=== PATIENT | male | born 1955 | race Hispanic/Latino ===

== ENCOUNTER 2021-03-22 11:07 | Inpatient (IN) | payer OTHER ==
[~2021-03-22] VITALS: Ht 162.6 cm; Wt 74.6 kg
[2021-03-22] MEDS: HYDROCODONE/ACETAMINOPHEN 5/325 MG TAB PO SCH (12:28)
[2021-03-22 12:32] VITALS: BP 184/106
[2021-03-22] MEDS ORDERED: SODIUM CHLORIDE 0.9% 1000ML 1,000 ML IV ONE (13:00)
[2021-03-22 13:25] LABS: BASOPHILS % (AUTO) 0.2 % (0.0-5.0); EOSINOPHILS % (AUTO) 0.6 % (0.0-8.0); HEMATOCRIT 42.6 % (42-54); LYMPHOCYTES % (AUTO) 14.4 % (21.0-51.0); MEAN CORPUSCULAR HEMOGLOBIN 33.1 pg (27.0-33.0); MEAN CORPUSCULAR HGB CONC 35.2 g/dL (32.0-36.0); MONOCYTES % (AUTO) 5.6 % (3.0-13.0); PLATELET COUNT (AUTO) 212 K/uL (130-400); RED BLOOD CELL COUNT(AUTO) 4.53 MIL/uL (4.50-6.20); RED CELL DISTRIBUTION WIDTH 11.9 % (11.0-15.5); WHITE BLOOD COUNT (AUTO) 8.9 K/uL (4.8-10.8)
[2021-03-22 13:35] LABS: CREATININE 1.1 mg/dL (0.5-1.5); POTASSIUM 4.2 mmol/L (3.5-5.1)
[2021-03-22 13:40] LABS: BILIRUBIN,TOTAL 0.6 mg/dL (0.2-1.0); TOTAL PROTEIN, SERUM 7.6 g/dL (6.0-8.3)
[2021-03-22 13:42] LABS: INR 1.05 (0.85-1.15); PROTHROMBIN TIME 11.4 SEC (9.6-11.6)
[2021-03-22] MEDS: CEFAZOLIN SODIUM 1 GM VIAL IVP SCH ×2 (14:45→20:49)
[2021-03-22 14:46] VITALS: BP 182/104
[2021-03-22] MEDS: HYDRALAZINE HCL 20 MG/ML VIAL IV SCH ×2 (16:11→20:52)
[2021-03-22 16:27] VITALS: BP 176/98
[2021-03-22] MEDS ORDERED: ONDANSETRON HCL 4 MG/2 ML VIAL IVP ONE (16:45)
[2021-03-22] MEDS ORDERED: MORPHINE 4 MG SYG (4MG/1ML) IV ONE (16:45)
[2021-03-22 16:58] VITALS: BP 163/86
[2021-03-22 17:20] VITALS: BP 146/84
[2021-03-22] MEDS ORDERED: ACETAMINOPHEN-CODEINE 300/30MG TAB PO PRN (19:00)
[2021-03-22] MEDS ORDERED: MAG HYDROX/AL HYDROX/SIMETH ES 30 ML SUSP UDCUP PO PRN (19:00)
[2021-03-22] MEDS ORDERED: DIPHENHYDRAMINE HCL 25 MG CAPSULE PO PRN (19:00)
[2021-03-22] MEDS ORDERED: ACETAMINOPHEN 325 MG TAB PO PRN (19:00)
[2021-03-22] MEDS ORDERED: ALBUTEROL SULFATE 0.083% 2.5 MG/3 ML INH IH PRN (19:00)
[2021-03-22] MEDS ORDERED: GUAIFENESIN-DM 200/20 MG 10 ML PO PRN (19:00)
[2021-03-22] MEDS ORDERED: ZOLPIDEM TARTRATE 5 MG TAB PO PRN (19:00)
[2021-03-22] MEDS ORDERED: ONDANSETRON HCL 4 MG/2 ML VIAL IV PRN (19:00)
[2021-03-22] MEDS ORDERED: NITROGLYCERIN 0.4 MG SL TAB SL PRN (19:00)
[2021-03-22] MEDS ORDERED: LACTULOSE 20 GM/30 ML UDCUP PO PRN (19:00)
[2021-03-22] MEDS ORDERED: ZOSYN 3.375 IV SCH (19:15)
[2021-03-22] MEDS ORDERED: SODIUM CHLORIDE 0.9% 50 ML IV SCH (19:15)
[2021-03-22] MEDS: FAMOTIDINE/PF 20 MG/2 ML VIAL IV SCH (20:48)
[2021-03-22] MEDS: MORPHINE 4 MG SYG (4MG/1ML) IV PRN (20:49)
[2021-03-22 20:54] VITALS: BP 144/88
[2021-03-22] MEDS ORDERED: ZOSYN 3.375GM+NS 50ML 50 ML IV SCH (21:00)
[2021-03-23] VITALS (25 sets, daily range): BP systolic 131–184; BP diastolic 74–108
[2021-03-23] MEDS: CEFAZOLIN SODIUM 1 GM VIAL IVP SCH ×2 (04:29→13:00)
[2021-03-23] MEDS: FAMOTIDINE/PF 20 MG/2 ML VIAL IV SCH (09:01)
[2021-03-23] MEDS: MORPHINE 4 MG SYG (4MG/1ML) IV PRN (09:02)
[2021-03-23] MEDS ORDERED: LACTATED RINGERS 1000ML 1,000 ML IV ONE (11:29)
[2021-03-23] MEDS: HYDROCODONE/ACETAMINOPHEN 5/325 MG TAB PO SCH ×2 (12:02→18:18)
[2021-03-23] MEDS ORDERED: DEXAMETHASONE SOD PHOSPHATE 10MG/ML 1ML VIAL ONE (12:19)
[2021-03-23] MEDS ORDERED: PROPOFOL 10 MG/ML 20ML VIAL IV ONE (12:19)
[2021-03-23] MEDS ORDERED: SUCCINYLCHOLINE 200MG/10ML SYR ONE (12:19)
[2021-03-23] MEDS ORDERED: LIDOCAINE PF 100MG/5ML (2%) SYRINGE 5ML ONE (12:19)
[2021-03-23] MEDS ORDERED: MIDAZOLAM HCL 1 MG/ML 2ML VIAL ONE (12:19)
[2021-03-23] MEDS ORDERED: ONDANSETRON HCL 4 MG/2 ML VIAL ONE (12:20)
[2021-03-23] MEDS ORDERED: FENTANYL CITRATE PF 50 MCG/1 ML 2ML VIAL ONE (12:21)
[2021-03-23] MEDS ORDERED: EPHEDRINE SULFATE 50 MG/ML AMPULE ONE (12:36)
[2021-03-23] MEDS ORDERED: CEFAZOLIN SODIUM 1 GM VIAL ONE (12:41)
[2021-03-23] MEDS ORDERED: HYDR-4377 PO (17:16)
[2021-03-23] MEDS ORDERED: IBUP-2077 PO (17:16)
== END 2021-03-23 19:30 | disposition home or self-care (01) | DRG 505 ==
LOC: EDH 11:07 → EDHIP 18:50 → 4AH 03-23 01:14
PROVIDERS: ADMIT Internal Medicine; ATTEND Internal Medicine
PROC: 0QSR04Z Reposition Left Toe Phalanx with Internal Fixation Device, Open Approach (ICD-10-PCS; principal; 2021-03-23 12:15)
DX: S92.422B Displaced fracture of distal phalanx of left great toe, initial encounter for open fracture (principal); S97.81XA Crushing injury of right foot, initial encounter; W23.0XXA Caught, crushed, jammed, or pinched between moving objects, initial encounter; W01.0XXA Fall on same level from slipping, tripping and stumbling without subsequent striking against object, initial encounter; I10 Essential (primary) hypertension; S92.42 Fracture of distal phalanx of great toe; X50.0XXA Overexertion from strenuous movement or load, initial encounter; Y93.89 Activity, other specified; Y92.89 Other specified places as the place of occurrence of the external cause; Y99.8 Other external cause status
CPT/HCPCS: 36415; 73620; 73630; 80053; 85025; 85610; 87635; 94664; C1713; G0378; J0330; J0360; J0690; J1100; J2001; J2250; J2270; J2405; J2704; J3010; J3490; J7120

== ENCOUNTER → 2021-12-26 | Outpatient (CLI) | payer OTHER ==
[~2021-12-26] MED LIST: HYDR-4377 PO; IBUP-2077 PO
== END | disposition home or self-care (01) ==
LOC: SHCH 10:00
PROVIDERS: ATTEND Internal Medicine Cardiovascular Disease
DX: I51.7 Cardiomegaly (principal); I25.10 Atherosclerotic heart disease of native coronary artery without angina pectoris; Z95.1 Presence of aortocoronary bypass graft
CPT/HCPCS: 93306

== ENCOUNTER → 2024-01-15 | Outpatient (CLI) | payer OTHER | END | disposition home or self-care (01) | LOC: SHCH 11:08 | PROVIDERS: ATTEND Internal Medicine Cardiovascular Disease | DX: I08.3 Combined rheumatic disorders of mitral, aortic and tricuspid valves (principal); I11.9 Hypertensive heart disease without heart failure; Z95.1 Presence of aortocoronary bypass graft | CPT/HCPCS: 93306 ==